=== PATIENT | male | born 1990 | race African-American/Black ===

== ENCOUNTER 2019-12-14 02:53 | Emergency (ER) | payer MEDICAID ==
[~2019-12-14] VITALS: Ht 170.2 cm; Wt 55.8 kg
[2019-12-14 03:03] VITALS: BP 118/68
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
== END 2019-12-14 03:20 | disposition home or self-care (01) ==
LOC: EDBD 02:53 → EMR 03:20
DX: R60.0 Localized edema (principal)
CPT/HCPCS: 99283